=== PATIENT | female | born 1955 | race Caucasian/White ===

== ENCOUNTER → 2020-12-10 14:07 | Outpatient (BNVA) | payer MEDICARE, BC, SELFPAY | PROVIDERS: PCP Internal Medicine; Visit Provider Internal Medicine Pulmonary Disease | DX: J45.909 Unspecified asthma, uncomplicated (principal); B94.8 Sequelae of other specified infectious and parasitic diseases | CPT/HCPCS: 99202 ==

== ENCOUNTER 2020-12-24 10:25 | Outpatient (REF) | payer MEDICARE, BC, SELFPAY ==
--- NOTE | ~2020-12-24 | CT_ITS ---
EXAMINATION: CT CHEST WITHOUT CONTRAST CLINICAL INFORMATION: Post Covid 19 syndrome. COMPARISON: None TECHNIQUE: Multidetector volumetric CT imaging of the chest was done. Axial MIP volume rendering provided. Sagittal and coronal reformatted images were obtained. This CT examination was performed using dose optimization techniques as appropriate, variously including the following: *Automated exposure control *Adjustment of mA and/or kV according to patient size (this includes techniques or standardized protocols for targeted exams where dose is matched to indication/reason for exam; i.e. extremities or head) *Use of iterative reconstruction technique DLP: 117 mGy-cm FINDINGS: FOOTWEAR SALES ASSOCIATE: Normal LUNGS: There is mild biapical pleural and parenchymal scarring. There is a 4 mm right apical nodule axial image 40 series 7. There is a 3 mm peripheral or subpleural left upper lobe nodule axial image 81 series 7. There is a 2 mm right upper lobe nodule axial image 134 series 7. There is a 3 mm right lower lobe nodule axial image 519 series 7. The lungs are otherwise clear. No evidence of pneumonia is seen. No evidence of interstitial lung disease, emphysema or bronchiectasis is seen. MEDIASTINUM: The mediastinum is normal. PLEURA: There is no pleural effusion. No pleural mass or thickening. AXILLA: No lymphadenopathy. UPPER ABDOMEN: Unremarkable. OSSEOUS STRUCTURES: Unremarkable. CT/CT chest wo con IMPRESSION: Mild biapical pleural and parenchymal scarring. Small pulmonary nodules, largest measuring 4 mm at the right lung. No evidence of pneumonia or interstitial disease. According to the UPDATED 2017 Fleischner Society recommendations, the advised follow-up imaging for left and 6 mm nodule: Low risk, no chest CT follow-up needed and high risk, optional chest CT follow-up in one year.
== END 2020-12-24 10:26 | disposition home or self-care (01) ==
LOC: HO.CT 10:25
PROVIDERS: Visit Provider Internal Medicine Pulmonary Disease
DX: B94.8 Sequelae of other specified infectious and parasitic diseases (principal)
CPT/HCPCS: 71250

== ENCOUNTER 2021-01-08 13:55 | Outpatient (REF) | payer MEDICARE, BC, SELFPAY ==
--- NOTE | 2021-01-08 14:51 | PFT_ITS ---
FLOWS: FEV1 of 103% of predicted at 2.47 L. FVC 101% of predicted at 3.17 L. FEV1 to FVC ratio of 0.78. No bronchodilator response except in small to medium airways. LUNG VOLUMES: Total lung capacity 111% of predicted at 5.65 L. Residual volume 120% of predicted at 2.53 L. Slow vital capacity 105% of predicted at 3.12 L. Expiratory reserve volume 34% of predicted at 0.27 L. Diffusion capacity is normal. IMPRESSION: No obstructive or restrictive ventilatory defect. No bronchodilator response except in small to medium airways. This test result can be consistent with underlying quiescent asthma. Clinical correlation is advised. MD DERIK Plummer/MODL / [id number]
== END 2021-01-08 13:56 | disposition home or self-care (01) ==
LOC: HO.RESP 13:55
PROVIDERS: PCP Internal Medicine; Visit Provider Internal Medicine Pulmonary Disease
DX: B94.8 Sequelae of other specified infectious and parasitic diseases (principal)
CPT/HCPCS: 94060; 94727; 94729

== ENCOUNTER → 2021-01-14 13:01 | Outpatient (BNVA) | payer MEDICARE, BC, SELFPAY | PROVIDERS: PCP Internal Medicine; Visit Provider Internal Medicine Pulmonary Disease | DX: J45.30 Mild persistent asthma, uncomplicated (principal); R91.1 Solitary pulmonary nodule | CPT/HCPCS: 99212 ==

== ENCOUNTER 2021-12-12 12:54 | Outpatient (REF) | payer MEDICARE, BC, SELFPAY ==
--- NOTE | ~2021-12-12 | CT_ITS ---
EXAMINATION: CT CHEST WITHOUT CONTRAST CLINICAL INFORMATION: Solitary pulmonary nodule. COMPARISON: None. TECHNIQUE: Multidetector volumetric CT imaging of the chest was done. Axial MIP volume rendering provided. Sagittal and coronal reformatted images were obtained. This CT examination was performed using dose optimization techniques as appropriate, variously including the following: *Automated exposure control *Adjustment of mA and/or kV according to patient size (this includes techniques or standardized protocols for targeted exams where dose is matched to indication/reason for exam; i.e. extremities or head) *Use of iterative reconstruction technique DLP: 113 mGy-cm FINDINGS: THERAPY ADMINISTRATIVE ASSISTANT: Unremarkable. LUNGS: The lungs are well expanded with minimal bilateral apical pleural thickening and parenchymal scarring. Again visualized is a 4 mm right apical nodule (image 74/7), a 3 mm peripheral nodule in the left upper lobe (axial image 88/7), a 2 mm calcified nodule in the right upper lobe (axial image 168/7), punctate 1 mm calcified nodules in the right upper lobe (axial image 166/7, 138/7) and left lower lobe (axial image 389/7) and a noncalcified 2 mm nodule in the right lower lobe (axial image 559/7). There are minimal atelectatic changes in the right lung base. MEDIASTINUM: The thyroid lobes are symmetrical and normal. The central trachea and the bronchi are widely patent. Heart size and the great vessels are normal caliber. There is no pericardial effusion. PLEURA: There is no pleural effusion. No pleural mass or thickening. AXILLAE: There are small shotty lymph nodes in the bilateral axillae. UPPER ABDOMEN: Visualized liver, spleen, pancreas and bilateral adrenal glands are unremarkable. OSSEOUS STRUCTURES: No lytic or sclerotic process seen. CT/CT chest wo con IMPRESSION: No acute pulmonary process seen. Minimal bilateral apical pleural parenchymal scarring and bilateral lung nodules, some of which are calcified and measure 1 mm, are stable. The largest noncalcified nodule measuring 4 mm is stable. Fleischner guidelines were followed.
== END 2021-12-12 12:55 | disposition home or self-care (01) ==
LOC: HO.CT 12:54
PROVIDERS: Visit Provider Internal Medicine Pulmonary Disease
DX: R91.1 Solitary pulmonary nodule (principal)
CPT/HCPCS: 71250

== ENCOUNTER → 2021-12-22 08:54 | Outpatient (BNVA) | payer MEDICARE, BC, SELFPAY | PROVIDERS: PCP Internal Medicine; Visit Provider Internal Medicine Pulmonary Disease | DX: J45.30 Mild persistent asthma, uncomplicated (principal); R91.1 Solitary pulmonary nodule | CPT/HCPCS: 99212 ==

== ENCOUNTER → 2022-04-27 13:12 | Outpatient (BNVA) | payer MEDICARE, BC, SELFPAY | PROVIDERS: PCP Internal Medicine; Visit Provider Internal Medicine Pulmonary Disease | DX: J45.30 Mild persistent asthma, uncomplicated (principal); R91.1 Solitary pulmonary nodule; Z79.899 Other long term (current) drug therapy | CPT/HCPCS: 99212 ==

== ENCOUNTER 2023-01-11 12:57 | Outpatient (REF) | payer MEDICARE, BC, SELFPAY ==
--- NOTE | ~2023-01-11 | CT_ITS ---
EXAMINATION: CT CHEST WITHOUT CONTRAST CLINICAL INFORMATION: Pulmonary nodule COMPARISON: Previous chest CT 12/26/2020 and December 2021 TECHNIQUE: Multidetector volumetric CT imaging of the chest was done. Axial MIP volume rendering provided. Sagittal and coronal reformatted images were obtained. This CT examination was performed using dose optimization techniques as appropriate, variously including the following: *Automated exposure control *Adjustment of mA and/or kV according to patient size (this includes techniques or standardized protocols for targeted exams where dose is matched to indication/reason for exam; i.e. extremities or head) *Use of iterative reconstruction technique DLP: 113 mGy-cm FINDINGS: LUNGS: The small pulmonary nodules are stable. Largest pulmonary nodule is a 4 mm right apical nodule axial image 60 series 5. MEDIASTINUM: The mediastinum is normal. CORONARY ARTERY CALCIFICATION: None visualized on this study. PLEURA: There is no pleural effusion. No pleural mass or thickening. AXILLA: No lymphadenopathy. UPPER ABDOMEN: Unremarkable. OSSEOUS STRUCTURES: Unremarkable. CT/CT chest wo IV con IMPRESSION: Stable small pulmonary nodules, largest measuring 4 mm in the right upper lobe. Fleischner guidelines were followed.
== END 2023-01-11 12:58 | disposition home or self-care (01) ==
LOC: HO.CT 12:57
PROVIDERS: PCP Student in an Organized Health Care Education/Training Program; Visit Provider Internal Medicine Pulmonary Disease
DX: R91.1 Solitary pulmonary nodule (principal)
CPT/HCPCS: 71250

== ENCOUNTER → 2023-01-29 10:21 | Outpatient (BNVA) | payer MEDICARE, BC, SELFPAY | PROVIDERS: PCP Student in an Organized Health Care Education/Training Program; Visit Provider Internal Medicine Pulmonary Disease | DX: J45.30 Mild persistent asthma, uncomplicated (principal); R91.1 Solitary pulmonary nodule; Z79.899 Other long term (current) drug therapy | CPT/HCPCS: 99212 ==

== ENCOUNTER 2024-01-20 10:09 | Outpatient (AMB) | payer MEDICARE, BC, SELFPAY ==
[2024-01-20 10:12] VITALS: BP 124/82; PULSE 69; O2SAT 96; BMI 23.6
--- NOTE | 2024-01-20 10:12 | A.OFFVIS_ITS ---
Vital Signs 01/20/24 10:12 Height 5 ft 4 in Weight 137 lb 12.623 oz BMI 23.6 BP 124/82 Blood Pressure Location Rt brachial Position Sitting Pulse 69 Pulse Source Doppler Pulse Oximetry (%) 96 Oxygen Delivery Method Room Air Intake Visit Reasons: asthma Allergies No Known Allergies Allergy (Verified 01/29/23 10:24) HPI HPI asthma: Details: 68-year-old lady, former 15 pack-year smoker, quit over 20 years prior, with underlying history of COVID-19 in the end of October of 2020, requiring hospi talization at [facility] for two days,? now followed for mild persistent asthma.? She continues to use Flovent 110 and albuterol MDI with excellent control of her underlying asthma symptoms. She denies any recent exacerbations.? [facility] Medical History (Updated 01/14/21 @ 13:44 by Alexsander Jiang MD) Asthma Review of Systems Card Denies dyspnea on exertion Resp Denies cough, Denies excessive phlegm production, Denies dyspnea on exertion and Denies wheezing Aller/Immun Denies wheezing Physical Exam Vital Signs: Last Vital Signs Pulse 69 01/20/24 10:12 BP 124/82 01/20/24 10:12 Pulse Ox 96 01/20/24 10:12 Oxygen Delivery Method Room Air 01/20/24 10:12 BMI result Body Mass Index 23.6 Const General: no acute distress and alert Nutritional Appearance: not obese Orientation/consciousness: Other orientation findings ( oriented) HEENT Head: Yes atraumatic Eyes General: appearance normal, both eyes and all related structures Sclerae: sclerae normal EOM: EOMs intact bilaterally Neck Neck: Yes supple Lymphatic: no lymphadenopathy noted Resp Effort & Inspection: normal respiratory effort and no use of accessory muscles Auscultation: clear to auscultation bilaterally Cardio Rate: regular rate Rhythm: regular rhythm Heart sounds: no gallops, no murmurs and no rubs Skin General skin exam: other ( warm) Extrem General: No clubbing, No cyanosis and No edema Assessment & Plan Assessment & Plan (1) Mild persistent asthma: Code(s): J45.30 - Mild persistent asthma, uncomplicated Category: Medical Plan: Patient is still able to receive Flovent and her symptoms are well controlled on Flovent 110 and albuterol MDI. Continue current regimen. When patient no longer will be able to receive Flovent, will change to Arnuity 100. Coding Level of Care Code Est Pt Level 3 (05862) Diagnoses Mild persistent asthma J45.30
== END 2024-01-20 10:32 | disposition home or self-care (01) ==
PROVIDERS: PCP Student in an Organized Health Care Education/Training Program; Visit Provider Internal Medicine Pulmonary Disease
DX: J45.30 Mild persistent asthma, uncomplicated (principal)
CPT/HCPCS: 99213

== ENCOUNTER → 2024-01-20 10:09 | Outpatient (BNVA) | payer MEDICARE, BC, SELFPAY | PROVIDERS: PCP Student in an Organized Health Care Education/Training Program; Visit Provider Internal Medicine Pulmonary Disease | DX: J45.30 Mild persistent asthma, uncomplicated (principal) | CPT/HCPCS: 99212 ==

== ENCOUNTER 2025-01-10 13:35 | Outpatient (AMB) | payer MEDICARE, BC, SELFPAY ==
--- OUTSIDE RECORDS SUMMARY | 2025-01-10 13:48 | XMS_ITS | Patient Health Record ---
Author Organization [facility] Address [address] [place] [address] Care Team Providers Care Garment Tag Stringer Name Role Phone Asia Gresham Primary Care Provider Unavail able Aj Vasquez Unavailable [phone] Reason For Referral No Information Medications Medication SIG (Take, Route, Frequency, Duration) Notes Start Date End Date Status Flovent HFA 110 MCG/ACT 2 puffs Inhalati on Twice a day Active Albuterol Sulfate HFA 108 (90 Base) MCG/ACT 2 puffs as needed Inhalation 4 TIMES A DAY PRN Active Problems Problem Type SNOMED Code ICD Code Onset Dates Problem Status W/U Status Risk Notes Problem [id number] Encounter for screening for malignant neoplasm of colon (Z12.11) Active confirmed Problem Screening for malignant neoplasm of rectum (605287696) Encounter for screening for malignant neoplasm of rectum (Z12.12) Active confirmed Problem [id number] Family history of colonic polyps (Z83.71) Active confirmed Plan Of Treatment Future Test Test Name Order Date COLONOSCOPY 10/09/2015 Insurance Providers Payer Name Payer Address Payer Phone Subscriber Number Group Number Insured Name Patient Relationship to Insured Coverage Start Date Coverage End Date [facility] [address] [place], [place] [id number] [phone] [id number] CHUNG Self - patient is the insured Medical (General) History Medical History History ICD Code colonoscopy in 2001 with rem oval of small hyperplastic polyps, and a colonoscopy 06-28-2008 was negative other than some mild sigmoid diverticulosis and small internal hemorrhoids mild asthma Denies NV,DM,CVA,Lung disease,renal dise ase Surgical History Surgery Date(Month/Year) pilonidal cyst appendectomy
[2025-01-10 13:49] VITALS: BP 112/70; PULSE 76; O2SAT 96; BMI 23.5
--- NOTE | 2025-01-10 13:49 | MHC.OFFVIS ---
Vital Signs 01/10/25 13:49 Height 5 ft 4 in Weight 137 lb BMI 23.5 BP 112/70 Blood Pressure Location Lt brachial Position Sitting Pulse 76 Pulse Source Pulse Oximeter Pulse Oximetry (%) 96 Oxygen Delivery Method Room Air Intake Visit Reasons: Asthma Allergies No Known Allergies Allergy (Verified 01/10/25 13:54) HPI HPI Asthma: Details: 69-year-old lady, former 15 pack-year smoker, quit over 20 years prior, with underlying history of COVID-19 in the end of October of 2020, requiring hospitalization at [facility] for two days,? now followed for mild persistent asthma.? She was switched to Arnuity 100 secondary to Flovent no longer being available. Her symptoms remain controlled. She rarely uses her albuterol MDI. [facility] Medical History (Updated 01/14/21 @ 13:44 by Alexsander Jiang MD) Asthma Review of Systems Const Denies daytime sleepiness, Denies excessive sweating, Denies fatigue, Denies fever(s), Denies lethargy, Denies malaise, Denies night sweats, Denies snoring and Denies weight loss Eyes Denies blurry vision and Denies itchy eyes ENT Denies nasal congestion, Denies post nasal drip, Denies sinus pain, Denies sinus pressure and Denies other ( Thrush) Card Denies chest pain, Denies pedal edema, Denies dyspnea, Denies orthopnea and Denies paroxysmal nocturnal dyspnea Resp Denies cough, Denies hemoptysis, Denies excessive phlegm production, Denies dyspnea, Denies snoring and Denies wheezing GI Denies abdominal pain and Denies heartburn Musc Denies myalgias, Denies arthralgias and Denies joint swelling Skin/Breast Denies rash Neuro Denies memory loss and Denies seizure-like activity Psych Denies abnormal sleep pattern, Denies anxiety and Denies memory loss Endo Denies excessive sweating, Denies fatigue and Denies heat intolerance Darnell/Lymph Denies easy bruising Aller/Immun Denies itchy eyes, Denies seasonal rhinorrhea and Denies wheezing Physical Exam Vital Signs: Last Vital Signs Pulse 76 01/10/25 13:49 BP 112/70 01/10/25 13:49 Pulse Ox 96 01/10/25 13:49 Oxygen Delivery Method Room Air 01/10/25 13:49 BMI result Body Mass Index 23.5 Const General: no acute distress and alert Nutritional Appearance: not obese Orientation/consciousness: Other orientation findings ( oriented) HEENT Head: Yes atraumatic Eyes General: appearance normal, both eyes and all related structures Sclerae: sclerae normal EOM: EOMs intact bilaterally Neck Neck: Yes supple Lymphatic: no lymphadenopathy noted Resp Effort & Inspection: normal respiratory effort and no use of accessory muscles Auscultation: clear to auscultation bilaterally Cardio Rate: regular rate Rhythm: regular rhythm Heart sounds: no gallops, no murmurs and no rubs Skin General skin exam: other ( warm) Extrem General: No clubbing, No cyanosis and No edema Assessment & Plan Assessment & Plan (1) Mild persistent asthma: Code(s): J45.30 - Mild persistent asthma, uncomplicated Category: Medical Plan: Well controlled on current regimen of Arnuity on 100 and albuterol MDI. Continue current regimen. Medications: Refilled fluticasone furoate 100 mcg/actuation (Arnuity Ellipta) 1 inh PO DAILY 30 ea 6RF Coding Level of Care Code Est Pt Level 3 (37798) Diagnoses Mild persistent asthma J45.30
== END 2025-01-10 14:41 | disposition home or self-care (01) ==
LOC: HO.HPS 13:36
PROVIDERS: PCP Student in an Organized Health Care Education/Training Program; Visit Provider Internal Medicine Pulmonary Disease
DX: J45.30 Mild persistent asthma, uncomplicated (principal)
CPT/HCPCS: 99213

== ENCOUNTER → 2025-01-10 13:35 | Outpatient (BNVA) | payer MEDICARE, BC, SELFPAY | PROVIDERS: PCP Student in an Organized Health Care Education/Training Program; Visit Provider Internal Medicine Pulmonary Disease | DX: J45.30 Mild persistent asthma, uncomplicated (principal); Z87.891 Personal history of nicotine dependence | CPT/HCPCS: 99212 ==